=== PATIENT | female | born 1940 | race Caucasian/White ===

== ENCOUNTER 2016-07-06 11:00 | Outpatient (CLI) | payer MEDICARE, OTHER | END 2016-07-06 11:01 | disposition home or self-care (01) | DX: M19.071 Primary osteoarthritis, right ankle and foot (principal); M71.371 Other bursal cyst, right ankle and foot ==

== ENCOUNTER 2016-08-29 10:23 | Emergency (ER) | payer MEDICARE, OTHER ==
[2016-08-29 10:45] LABS: BILIRUBIN,URINE NEGATIVE (NEGATIVE); PH,URINE 5.5 PH (5.0-7.5)
[2016-08-29 10:59] LABS: UR CULTURE IF IND INDICATED
[2016-08-29] MEDS ORDERED: SODIUM CHLORIDE 0.9% 1,000 ML IV ONE (11:21)
--- NOTE | 2016-08-29 11:21 | XRAY Report ---
EXAM: ABDOMEN RADIOGRAPHY, ONE VIEW EXAM DATE: 08/29/2016 11:00 AM. CLINICAL HISTORY: Constipation for approximately 5 days in a 76-year-old female. COMPARISON: None. TECHNIQUE: AP spine view. FINDINGS: Bowel Gas Pattern: Within normal limits. No dilated loops. No excess colonic fecal content. Other: No organomegaly, mass or abnormal calcifications. Osseous structures unremarkable for age. IMPRESSION: Normal abdominal bowel gas pattern. No excess colonic fecal content suggesting constipati on. [facility] Referring Provider Line: [phone] SITE ID: [id number]
[2016-08-29 11:39] LABS: BASOPHILS % (AUTO) 0.4 %; EOSINOPHILS % (AUTO) 0.3 %; HCT - HEMATOCRIT 46.5 % (37.0-47.0); HGB - HEMOGLOBIN 16.1 g/dL (12.0-16.0); LYMPHOCYTES % (AUTO) 12.3 %; MEAN CORPUSCULAR HEMOGLOBIN 33.6 pg (27.0-31.0); MEAN CORPUSCULAR HGB CONC 34.6 g/dL (32.0-36.0); MEAN CORPUSCULAR VOLUME 97.1 fL (81.0-99.0); MEAN PLATELET VOLUME 8.2 fL (7.9-10.8); MONOCYTES # (AUTO) 0.6 10^3/uL (0.0-1.0); MONOCYTES % (AUTO) 6.6 %; NEUTROPHILS # (AUTO) 6.7 10^3/uL (1.5-6.6); NEUTROPHILS % (AUTO) 80.4 %; RED BLOOD COUNT 4.79 10^6/uL (4.20-5.40); RED CELL DISTRIBUTION WIDTH 12.9 % (12.0-15.0); UNCORRECTED WHITE BLOOD COUNT 8.4 x10^3/uL; WHITE BLOOD COUNT 8.4 x10^3/uL (4.8-10.8)
[2016-08-29 11:51] LABS: ALBUMIN/GLOBULIN RATIO 1.7 (1.0-2.2); CALCIUM 9.7 mg/dL (8.5-10.3); CREATININE 0.8 mg/dL (0.4-1.0); POTASSIUM 3.9 mmol/L (3.5-5.0); TOTAL PROTEIN 7.6 g/dL (6.7-8.2)
[2016-08-29] MEDS ORDERED: IOPAMIDOL-300 100 ML VIAL IVP ONE (12:16)
[2016-08-29 12:52] VITALS: BP 171/89
--- NOTE | 2016-08-29 13:02 | CT Preliminary Report ---
Exam: CT Abdomen/Pelvis W/ IMPRESSION: Possible mass in the distal transverse colon. Correlation with colonoscopy is recommended . [facility] SITE ID: [id number]
--- NOTE | 2016-08-29 13:05 | CT Report ---
EXAM: CT ABDOMEN AND PELVIS EXAM DATE: 08/29/2016 12:33 PM. CLINICAL HISTORY: Constipation bloating and decreased caliber stools. COMPARISONS: None. TECHNIQUE: Routine helical CT imaging was performed through the abdomen and pelvis. IV contrast: 100 mL Isovue 300. Enteric contrast: No. Reconstructions: Coronal and sagittal. In accordance with CT protocol optimization, one or more of the following dose reduction techniques w ere utilized for this exam: automated exposure control, adjustment of mA and/or KV based on patient s ize, or use of iterative reconstructive technique. FINDINGS: Lung Bases: Unremarkable. Liver: Normal. No masses. Gallbladder/Bile Ducts: Unremarkable. Spleen: Normal. Pancreas: Normal. Adrenal Glands: Normal. Kidneys: Normal. No masses or hydronephrosis. Peritoneal Cavity/Bowel: There is a possible mass in the distal transverse colon (axial image 32-36, coronal reconstructions 18-20) The appendix is well visualized and normal. Pelvic Organs: Normal. The bladder and visualized pelvic organs are within normal limits. Vasculature: No aneurysms or other significant abnormality. Bones: No significant abnormality. Other: None. IMPRESSION: Possible mass in the distal transverse colon. Correlation with colonoscopy is recommended . [facility] Referring Provider Line: [phone] SITE ID: [id number]
[2016-08-29] MEDS ORDERED: CIPROFLOXACIN 250 MG TABLET PO STA (14:29)
--- NOTE | 2016-08-29 14:32 | ED Physician Documentation ---
PD HPI ABD PAIN - Stated complaint Stated Complaint: CONSTIPATION - Chief complaint Chief Complaint: Abd Pain - History obtained from History obtained from: Patient - Additional information Additional information: Patient is a 76-year-old female with really no significant past medical history. She presents with a complaint of constipation, abdominal bloating, and small thin caliber stools for the past couple of months. She initially thought it would pass however it is started to slowly worsen. She comesIn today with a complaint of concern for recurrent constipation she is taking Dulcolax a couple times and has not had any significant stool output. She does mention that she is eating and drinking less and maybe has lost 5 pounds of weight. She reports having relatively normal colonoscopy several years ago. This patient is otherwise healthy. She does not have fever or chills there is no nausea or vomiting and she has no lower urinary symptoms. Review of systems: For pertinent positive and negative questions for the review of systems please see history of present illness. Otherwise all other systems have been reviewed and are negative. Dragon disclaimer: Parts of this medical record were created using voice recognition technology. Because of the inherent limitations of this system occasional same sounding word substitutions do occur and persist despite proofreading. Please read the document for context. PD PAST MEDICAL HISTORY - Past Medical History Past Medical History: Yes Other Past Medical History: arthritis, urinary incontinence - Past Surgical History Past Surgical History: Yes - Present Medications Home Medications: Ambulatory Orders Medication Instructions Recorded Confirmed Ciprofloxacin HCl [Cipro] 250 mg PO BID #6 tablet 08/29/16 Docusate Sodium 250Mg Capsule 250 mg PO DAILY #14 capsule 08/29/16 [Colace 250Mg Capsule] Oxybutynin [Ditropan] 5 mg PO PRN 08/29/16 traZODone [Desyrel] 50 mg PO DAILY 08/29/16 08/29/16 - Allergies Allergies/Adverse Reactions: Allergies Allergy/AdvReac Type Severity Reaction Status Date / Time iodine Allergy Unknown Verified 08/29/16 10:29 Penicillins Allergy Unknown Verified 08/29/16 10:29 Sulfa (Sulfonamide Allergy Unknown Verified 08/29/16 10:29 Antibiotics) tetracycline Allergy Unknown Verified 08/29/16 10:29 - Social History Does the pt smoke?: No Smoking Status: Never smoker Does the pt drink ETOH?: Yes ETOH Use: Wine Does the pt have substance abuse?: No PD ED PE NORMAL - General General: Alert and oriented X 3, No acute distress - HEENT HEENT: Atraumatic, PERRL, EOMI, Pharynx benign - Neck Neck: No JVD - Cardiac Cardiac: RRR, No murmur, No gallop, No rub - Respiratory Respiratory: No respiratory distress - Abdomen Abdomen: Normal bowel sounds, Soft, Non tender, Non distended, Other (Slightly increased borborygmi) - Derm Derm: Normal color, Warm and dry - Extremities Extremities: No deformity, No tenderness to palpate, No edema - Neuro Neuro: Alert and oriented X 3, air traffic coordinator 2-12 intact, No motor deficit, No sensory deficit - Psych Psych: Normal mood Results - Vitals Vitals: Vital Signs - 24 hr 08/29/16 08/29/16 10:26 12:51 Temperature 36.3 C L Heart Rate 75 64 Respiratory 16 16 Rate Blood Pressure 171/85 H 171/89 H O2 Saturation 99 98 Oxygen O2 Source Room air - Labs Labs: Laboratory Tests 08/29/16 08/29/16 08/29/16 10:36 11:30 11:30 WBC 8.4 RBC 4.79 Hgb 16.1 H Hct 46.5 MCV 97.1 MCH 33.6 H MCHC 34.6 RDW 12.9 Plt Count 226 MPV 8.2 Neut # 6.7 H Lymph # 1.0 L [place] # 0.6 Eos # 0.0 Baso # 0.0 Absolute Nucleated RBC 0.00 Nucleated RBCs 0.0 Sodium 137 Potassium 3.9 Chloride 102 Carbon Dioxide 23 Anion Gap 12.0 BUN 11 Creatinine 0.8 Estimated GFR (MDRD) 70 L Glucose 107 H Calcium 9.7 Total Bilirubin 1.0 AST 25 ALT 19 Alkaline Phosphatase 66 Total Protein 7.6 Albumin 4.8 Globulin 2.8 Albumin/Globulin Ratio 1.7 Lipase 41 Urine Color YELLOW Urine Clarity CLEAR Urine pH 5.5 Ur Specific [place] 1.020 Urine Protein NEGATIVE Urine Glucose (UA) NEGATIVE Urine Ketones 15 H Urine Occult Blood NEGATIVE Urine Nitrite NEGATIVE Urine Bilirubin NEGATIVE Urine Urobilinogen 0.2 (NORMAL) Ur Leukocyte Esterase TRACE H Urine RBC 0-5 Urine WBC 6-10 H Ur Squamous Epith Cells FEW Squamous Urine Bacteria Rare Urine Culture Comments INDICATED PD MEDICAL DECISION MAKING - ED course ED course: Well-appearing 76-year-old lady who presents with abdominal bloating, constipation, mild decreased appetite and small caliber stools. This is ongoing is been present for a couple months. On exam she looks great. She had a has increased borborygmi otherwise is soft nontender examination. We did do a CT scan of the abdomen pelvis with IV contrast there is a questionable abnormality in the transverse colon possibly consistent with a mass. Given the patient's complaints of small caliber stools and this radiographic finding she probably needs a urgent colonoscopy. The case was discussed with general surgery irrigation service technician who wants her to follow-up on Tuesday with him. The patient is clinically doing well. She perhaps has a mild urinary tract infection which will be treated with ciprofloxacin low-dose and we will put her on stool softeners and the patient will increase her fiber and follow-up tomorrow. Disposition: To home Clinical impression: 1. Abdominal pain constipation and bloating 2. Possible transverse colon mass 3. Urinary tract infection-minor Departure - Departure Disposition: , Self Care Clinical Impression: Colonic mass Condition: Good Instructions: Abdominal Pain Follow-Up: MISAEL HIRSCH MD [Provider Admit Priv/Credential] - Prescriptions: Ciprofloxacin HCl [Cipro] 250 mg PO BID #6 tablet Docusate Sodium 250Mg Capsule [Colace 250Mg Capsule] 250 mg PO DAILY #14 capsule Comments: Call DR LYNNE TOMORROW FOR APPOINTMENT
[2016-08-29] MEDS ORDERED: CIPROFLOXACIN 250 MG TABLET PO ONE (14:36)
== END 2016-08-29 14:52 | disposition home or self-care (01) ==
LOC: ED 10:23
DX: K59.00 Constipation, unspecified (principal); R14.0 Abdominal distension (gaseous); K63.89 Other specified diseases of intestine; N39.0 Urinary tract infection, site not specified
CPT/HCPCS: 36415; 74000; 74177; 80053; 81001; 83690; 85025; 87086; 99283; 99284; A9270; Q9967

== ENCOUNTER 2016-09-02 12:18 | Day surgery (SDC) | payer MEDICARE, OTHER ==
[2016-09-02] MEDS ORDERED: LACTATED RINGERS 1,000 ML IV ONE ×3 (12:49→14:50)
[2016-09-02] MEDS ORDERED: MIDAZOLAM 2 MG/2 ML VIAL IVP ONE (14:00)
[2016-09-02] MEDS ORDERED: fentaNYL 100 MCG/2 ML VIAL IVP ONE (14:00)
[2016-09-02 15:21] VITALS: BP 174/79
== END 2016-09-02 12:19 | disposition home or self-care (01) ==
LOC: SDS 12:18
PROVIDERS: ATTEND Surgery
PROC: 0DBP8ZX Excision of Rectum, Via Natural or Artificial Opening Endoscopic, Diagnostic (ICD-10-PCS; 2016-09-02)
PROC: 0DBN8ZX Excision of Sigmoid Colon, Via Natural or Artificial Opening Endoscopic, Diagnostic (ICD-10-PCS; principal; 2016-09-02 13:30)
DX: K63.89 Other specified diseases of intestine (principal); K63.5 Polyp of colon; K57.30 Diverticulosis of large intestine without perforation or abscess without bleeding; D12.8 Benign neoplasm of rectum; K64.8 Other hemorrhoids; I10 Essential (primary) hypertension; K21.9 Gastro-esophageal reflux disease without esophagitis; F41.9 Anxiety disorder, unspecified; F32.9 Major depressive disorder, single episode, unspecified; Z96.651 Presence of right artificial knee joint; Z88.0 Allergy status to penicillin; Z88.2 Allergy status to sulfonamides
CPT/HCPCS: 45380; 45385; J7120; 88305

== ENCOUNTER 2016-09-29 16:04 | Outpatient (CLI) | payer MEDICARE, OTHER ==
--- NOTE | 2016-10-01 15:38 | Mammography Report ---
DIGITAL SCREENING MAMMOGRAM: 09/29/2016 CLINICAL INDICATION: A 76-year-old with history of benign biopsies for screening. COMPARISON: 09/2015, 06/2013, 03/2012, 03/2010. TECHNIQUE: Routine CC and MLO projections were obtained of the breasts as well as bilateral laterall y exaggerated craniocaudal views. FINDINGS: Scattered fibroglandular tissue is present within the breasts. There are no dominant justin s, suspicious microcalcifications, or secondary signs of malignancy. In comparison to the previous st udies, there are no significant changes. ASSESSMENT: NO MAMMOGRAPHIC EVIDENCE OF MALIGNANCY. NO SIGNIFICANT INTERVAL CHANGES. RECOMMENDATION: Screening mammography is recommended annually. BI-RADS category 1 - negative. STANDARD QUALIFYING STATEMENTS 1. This examination was reviewed with the aid of Computed-Aided Detection (CAD). 2. A negative or benign imaging report should not delay biopsy if clinically suspicious findings are present. Consider surgical consultation if warranted. More than 5% of cancers are not identified by i maging. 3. Dense breasts may obscure an underlying neoplasm. JOB #: [id number] EXT JOB #:[id number]
== END 2016-09-29 16:05 | disposition home or self-care (01) ==
LOC: DI.S 16:04
PROVIDERS: ATTEND Family Medicine
DX: Z12.31 Encounter for screening mammogram for malignant neoplasm of breast (principal)
CPT/HCPCS: 77067

== ENCOUNTER 2016-11-08 16:13 | Outpatient (CLI) | payer MEDICARE, OTHER ==
--- NOTE | 2016-11-09 10:51 | MRI Report ---
EXAM: LEFT ANKLE/HINDFOOT MRI WITHOUT CONTRAST EXAM DATE: 11/08/2016 05:03 PM. CLINICAL HISTORY: Acquired flatfoot. Left ankle pain. COMPARISON: None. TECHNIQUE: Multiplanar, multisequence T1-weighted and fluid-sensitive sequences of the ankle/hindfoot without contrast. Other: None. FINDINGS: Bones and Articular Cartilage: Linear defect from previously placed anchor within the lateral malleol us. Small osteophytes at the anterior aspect of the tibial plafond. Slight bony irregularity at the m edial malleolus which may be from previous injury. Small 8 x 4 x 6 mm well-corticated bone fragment a djacent to the posterior lateral aspect of the medial malleolus. Osteophytes at the inferomedial aspe ct of the talus. Small 4 x 3 mm area of minimal subcortical marrow edema and moderate cartilage thinn ing at the lateral aspect of the talar dome. There is also focal grade 3-4 chondromalacia of the ante rolateral aspect of the tibiotalar joint. [id number] osteoarthritis at the posterior aspect of the posterior subtalar joint. [id number] osteoarthritis at the navicularmedial cuneiform joint . Moderate to severe osteoarthritis at the second and third tarsometatarsal joints. Moderate osteoart hritis at the fourth and fifth tarsometatarsal joints. No acute fracture. Ligaments: The tibiofibular ligaments are intact. The anterior talofibular ligament is not well seen. The posterior talofibular ligament is intact. The calcaneofibular ligament is intact. The anterior t ibiotalar ligaments are not well seen. The superficial deltoid and spring ligaments are intact. Anterior Tendons: The tibialis anterior, extensor hallucis longus, and extensor digitorum longus tend ons are unremarkable. Medial Tendons: There is tendinosis within the posterior tibialis tendon at the level of the distal t ibial metadiaphysis. There is also minimal posterior tibialis tenosynovitis at the level of the dista l tibial metadiaphysis. The more distal aspects of the posterior tibialis tendon are intact. The flex or digitorum longus and flexor hallucis longus tendons are unremarkable. Lateral Tendons: Postoperative changes suggestive of previous peroneal brevis reconstruction. The dis hernando aspect of the reconstructed peroneal brevis tendon is intact. The peroneal longus tendon is intac t. Achilles Tendon: The Achilles tendon is unremarkable. Musculature: No edema or fatty atrophy. Other: No effusions. The contents of the sinus tarsi and tarsal tunnel are unremarkable. No plantar f asciitis. Mild subcutaneous edema at the medial aspect of the ankle. IMPRESSION: 1. Tendinosis and minimal tenosynovitis of the posterior tibialis tendon at the level of the distal t ibial metadiaphysis. 2. Mild subcutaneous edema at the medial aspect of the ankle. 3. Postoperative changes at the lateral aspect of the ankle suggestive of previous peroneal brevis re construction. The reconstructed peroneal brevis tendon is intact. 4. Osteoarthritis at the hindfoot and midfoot as described above. Small osteochondral lesion/injury a t the lateral aspect of the talar dome. 5. The anterior talofibular and the anterior tibiotalar ligaments are not well seen, and may be chron ically torn. [facility] MUSCULOSKELET[facility] SE[facility] Referring Provider Line: [phone] SITE ID: [id number]
== END 2016-11-08 16:14 | disposition home or self-care (01) ==
LOC: DI 16:13
PROVIDERS: ATTEND Podiatrist
DX: M25.572 Pain in left ankle and joints of left foot (principal); M21.42 Flat foot [pes planus] (acquired), left foot; M65.872 Other synovitis and tenosynovitis, left ankle and foot; M76.822 Posterior tibial tendinitis, left leg; M19.072 Primary osteoarthritis, left ankle and foot

== ENCOUNTER 2017-01-01 08:17 | Outpatient (CLI) | payer MEDICARE, OTHER ==
--- NOTE | 2017-01-01 09:47 | Ultrasound Report ---
EXAM: BILATERAL LOWER EXTREMITY VENOUS ULTRASOUND EXAM DATE: 01/01/2017 09:24 AM. CLINICAL HISTORY: BILATERAL LEG SPASM PAIN. COMPARISON: None. TECHNIQUE: Real-time sonographic vascular imaging was performed by the concrete inspector through the lower extremities utilizing both color-flow and Doppler spectral analysis. Multiple floor representative static i mages were saved for review. FINDINGS: Right: Common Femoral Vein (CFV): Normal. CFV-GSV Junction: Normal. Profunda Femoral Vein (PFV): Normal. Femoral Vein (FV) Prox: Normal. Femoral Vein (FV) Mid: Normal. Femoral Vein (FV) Dist: Normal. Popliteal Vein: Normal. Posterior Tibial Veins: Normal. Peroneal Veins: Normal. Left: Common Femoral Vein (CFV): Normal. CFV-GSV Junction: Normal. Profunda Femoral Vein (PFV): Normal. Femoral Vein (FV) Prox: Normal. Femoral Vein (FV) Mid: Normal. Femoral Vein (FV) Dist: Normal. Popliteal Vein: Normal. Posterior Tibial Veins: Normal. Peroneal Veins: Normal. Other: None. IMPRESSION: No evidence for deep venous thrombosis bilaterally. [facility] Referring Provider Line: [phone] SITE ID: [id number]
== END 2017-01-01 08:18 | disposition home or self-care (01) ==
LOC: DI 08:17
PROVIDERS: ATTEND Nurse Practitioner Family
DX: M79.605 Pain in left leg (principal); M79.604 Pain in right leg
CPT/HCPCS: 93970

== ENCOUNTER 2017-01-10 11:45 | Outpatient (CLI) | payer MEDICARE, OTHER ==
--- NOTE | 2017-01-10 15:44 | XRAY Report ---
THREE VIEW LEFT ANKLE: 01/10/2017 CLINICAL INDICATION: Severe pain. FINDINGS: AP, lateral, and oblique views of the left ankle demonstrate lateral greater than medial s oft tissue swelling. Mild osteoarthritic changes are seen. There is no evidence of acute fracture. No effusion is present. IMPRESSION: MILD OSTEOARTHRITIS. SOFT TISSUE SWELLING. :9 JOB #: [id number] EXT JOB #:[id number]
== END 2017-01-10 11:46 | disposition home or self-care (01) ==
LOC: DI.S 11:45
PROVIDERS: ATTEND Family Medicine
DX: M19.072 Primary osteoarthritis, left ankle and foot (principal)

== ENCOUNTER 2017-03-23 20:38 | Outpatient (CLI) | payer MEDICARE, OTHER ==
--- NOTE | 2017-03-24 01:34 | Ultrasound Report ---
EXAM: BILATERAL LOWER EXTREMITY VENOUS ULTRASOUND EXAM DATE: 03/23/2017 10:35 PM. CLINICAL HISTORY: DIMINISHED PULSE BELATE, FOOT SUGARY, EDEMA. COMPARISON: None. TECHNIQUE: Real-time sonographic vascular imaging was performed by the sewage screen operator through the lower extremities utilizing both color-flow and Doppler spectral analysis. Multiple admitting representative static i mages were saved for review. FINDINGS: Right: Common Femoral Vein (CFV): Normal. CFV-GSV Junction: Normal. Profunda Femoral Vein (PFV): Normal. Femoral Vein (FV) Prox: Normal. Femoral Vein (FV) Mid: Normal. Femoral Vein (FV) Dist: Normal. Popliteal Vein: Normal. Posterior Tibial Veins: Normal. Peroneal Veins: Normal. Left: Common Femoral Vein (CFV): Normal. CFV-GSV Junction: Normal. Profunda Femoral Vein (PFV): Normal. Femoral Vein (FV) Prox: Normal. Femoral Vein (FV) Mid: Normal. Femoral Vein (FV) Dist: Normal. Popliteal Vein: Normal. Posterior Tibial Veins: Normal. Peroneal Veins: Normal. Other: None. IMPRESSION: No evidence for deep venous thrombosis bilaterally. [facility] Referring Provider Line: [phone] SITE ID: [id number]
--- NOTE | 2017-03-24 13:15 | Ultrasound Report ---
EXAM: BILATERAL LOWER EXTREMITY ARTERIAL DOPPLER ULTRASOUND EXAM DATE: 03/23/2017 10:34 PM. CLINICAL HISTORY: Diminished pulse, foot surgery, edema. Clinical suspicion for stenosis is cause for diminished pulse and foot edema. COMPARISON: None. TECHNIQUE: Real-time sonographic vascular imaging was performed by the recycling tech, utilizing color-f low, Doppler flow, and spectral analysis. Multiple truck sales representative static images were saved for review . FINDINGS: RIGHT LEG: REPAIR TABLE OPERATOR: PSV 83 cm/sec. Triphasic waveform. PSFA: PSV 77 cm/sec. Biphasic waveform. MSFA: PSV 64 cm/sec. Biphasic waveform. DSFA: PSV 38 cm/sec. Biphasic waveform. PFA: PSV 69 cm/sec. Triphasic waveform. POP: PSV 62 cm/sec. Biphasic waveform. BROCK: PSV 29 cm/sec. Monophasic waveform. KENO ATTENDANT: PSV 51 cm/sec. Biphasic waveform. PER: PSV 27 cm/sec. Biphasic waveform. DPA: PSV 37 cm/sec. Biphasic waveform. LEFT LEG: REPAIR TABLE OPERATOR: PSV 107 cm/sec. Triphasic waveform. PSFA: PSV 83 cm/sec. Triphasic Waveform. MSFA: PSV 86 cm/sec. Biphasic waveform. DSFA: PSV 80 cm/sec. Triphasic waveform. PFA: PSV 46 cm/sec. Biphasic waveform. POP: PSV 82 cm/sec. Biphasic waveform. BROCK: PSV 71 cm/sec. Biphasic waveform. KENO ATTENDANT: PSV 126 cm/sec. Biphasic waveform. PER: PSV 60 cm/sec. Monophasic waveform. DPA: PSV 47 cm/sec. Monophasic waveform. Peak systolic velocity of proximal right anterior tibial artery is 29 cm/s with monophasic waveform c ompared to the 62 cm/s peak systolic velocity of right popliteal artery with biphasic waveform. Monop hasic waveform is noted at the left dorsalis pedis artery with 47 cm/s peak systolic velocity. IMPRESSION: 1. Monophasic flow left dorsalis pedis artery suggestive of distal anterior tibial artery stenosis, c ellulitis or postoperative edema. 2. Limited visualization of the right anterior tibial artery. 2.Diffuse mild atheromatous changes lower extremity arteries. 3. Recommend resting ankle-brachial indices bilaterally for evaluation of arterial insufficiency. [facility] Referring Provider Line: [phone] SITE ID: [id number]
== END 2017-03-23 20:39 | disposition home or self-care (01) ==
LOC: DI 20:38
PROVIDERS: ATTEND Nurse Practitioner Family
DX: R09.89 Other specified symptoms and signs involving the circulatory and respiratory systems (principal); R60.9 Edema, unspecified; I70.203 Unspecified atherosclerosis of native arteries of extremities, bilateral legs
CPT/HCPCS: 93925; 93970

== ENCOUNTER 2017-03-30 14:03 | Emergency (ER) | payer MEDICARE, OTHER ==
--- NOTE | 2017-03-30 14:29 | ED Physician Documentation ---
PD HPI LOWER EXT INJURY - Stated complaint Stated Complaint: LEFT FOOT PX - Chief complaint Chief Complaint: Ext Problem - History obtained from History obtained from: Patient - History of Present Illness PD HPI LOW EXT INJURY LOCATION: Other (She had a complicated surgery at the [facility] on February [address] Devon Houston. Basically it sounds like she had a lot of foot and ankle pain and she has a lot of new hardware in there. She is doing very well until about a week or 10 days ago when she started to get swelling of the foot. She Had a culture done because there was some pus coming from 1 of the suture lines between the first and second metatarsals and was placed on clindamycin. She also had Doppler ultrasounds of the arterial and venous systems showing no DVT and some vascular disease that is nonocclusive. Despite being on clindamycin, now day about 5 she continues to have the symptoms. She is very mild nausea from the clindamycin but is otherwise without fever or chills.) Review of Systems Constitutional: denies: Fever, Chills Throat: denies: Dental pain / toothache, Sore throat Cardiac: denies: Chest pain / pressure, Palpitations Respiratory: denies: Dyspnea, Cough PD PAST MEDICAL HISTORY - Past Medical History Respiratory: None Endocrine/Autoimmune: None GI: GERD, Chronic constipation, Hemorrhoids : Other HEENT: Chronic hearing loss Psych: Anxiety Musculoskeletal: Osteoarthritis Derm: Eczema - Past Surgical History Past Surgical History: Yes General: EGD Ortho: Knee replacement, Rotator cuff repair, Spine surgery, Other Cardiovascular: Cardiac catheterization - Present Medications Home Medications: Ambulatory Orders Medication Instructions Recorded Confirmed Oxybutynin [Ditropan] 5 mg PO PRN PRN 08/29/16 09/01/16 traZODone [Desyrel] 200 mg PO DAILY 08/29/16 09/01/16 Clindamycin HCl [Clindamycin 300MG 300 mg PO QID 03/30/17 03/30/17 CAP] DULoxetine [Cymbalta] 20 mg PO BID 03/30/17 03/30/17 Zolpidem [Ambien] 5 mg PO DAILY 03/30/17 03/30/17 - Allergies Allergies/Adverse Reactions: Allergies Allergy/AdvReac Type Severity Reaction Status Date / Time iodine Allergy Unknown Verified 03/30/17 14:11 Penicillins Allergy Unknown Verified 08/29/16 10:29 Sulfa (Sulfonamide Allergy Unknown Verified 08/29/16 10:29 Antibiotics) tetracycline Allergy Unknown Verified 08/29/16 10:29 - Social History Does the pt smoke?: No Smoking Status: Never smoker Does the pt drink ETOH?: Yes Does the pt have substance abuse?: No PD ED PE NORMAL - Vitals Vital signs reviewed: Yes - General General: Alert and oriented X 3, No acute distress - HEENT HEENT: PERRL, EOMI - Neck Neck: Supple, no meningeal sign, No bony TTP - Cardiac Cardiac: RRR, No murmur - Respiratory Respiratory: No respiratory distress, Clear bilaterally - Abdomen Abdomen: Normal bowel sounds, Soft, Non tender - Back Back: No CVA TTP, No spinal TTP - Derm Derm: Normal color, Warm and dry - Extremities Extremities: Other (Left foot is warm and red throughout with mild swelling. It is nontender, there is no warmth or redness above the top part of the ankle. Calf is nontender. Suture lines are intact without purulent drainage.) - Neuro Neuro: Alert and oriented X 3, Normal speech - Psych Psych: Normal mood, Normal affect Results - Vitals Vitals: Vital Signs - 24 hr 03/30/17 14:06 Temperature 36 C L Heart Rate 108 H Respiratory 18 Rate Blood Pressure 142/90 H O2 Saturation 97 Oxygen O2 Source Room air - Labs Labs: Laboratory Tests 03/30/17 03/30/17 03/30/17 14:36 14:36 14:36 WBC 6.9 RBC 4.30 Hgb 14.2 Hct 41.3 MCV 96.0 MCH 33.0 H MCHC 34.4 RDW 12.8 Plt Count 293 MPV 7.6 L Neut # 5.3 Lymph # 0.9 L [place] # 0.7 Eos # 0.0 Baso # 0.0 Absolute Nucleated RBC 0.00 Nucleated RBC % 0.0 ESR 10 Sodium 135 Potassium 4.1 Chloride 100 L Carbon Dioxide 21 Anion Gap 14.0 H BUN 13 Creatinine 0.7 Estimated GFR (MDRD) 82 L Glucose 127 H Calcium 9.5 C-Reactive Protein < 1.0 PD MEDICAL DECISION MAKING - ED course Complexity details: reviewed old records (Previous labs obtained from [facility] dated March 24 as the collection date, she had a white count of 7.5 and her bacterial culture grew light mixed skin steven) ED course: 77-year-old woman with postoperative foot swelling, infectious markers are negative and x-ray without acute change, ultrasounds already done and reviewed in the chart, could be mild infection and she is encouraged to continue her clindamycin but also follow-up with a vascular surgeon. Departure - Departure Disposition: 01 Home, Self Care Clinical Impression: Swelling of first metatarsophalangeal (MTP) joint of left foot Condition: Good Record reviewed to determine appropriate education?: Yes Comments: Follow-up with your surgeon as scheduled and also follow-up with the vascular surgeon as the referral has been started. Return if worse or you run a fever.
[2017-03-30 14:46] LABS: BASOPHILS % (AUTO) 0.4 %; EOSINOPHILS % (AUTO) 0.2 %; HGB - HEMOGLOBIN 14.2 g/dL (12.0-16.0); LYMPHOCYTES # (AUTO) 0.9 10^3/uL (1.5-3.5); MEAN CORPUSCULAR HGB CONC 34.4 g/dL (32.0-36.0); MEAN PLATELET VOLUME 7.6 fL (7.9-10.8); MONOCYTES # (AUTO) 0.7 10^3/uL (0.0-1.0); MONOCYTES % (AUTO) 9.6 %; NEUTROPHILS # (AUTO) 5.3 10^3/uL (1.5-6.6); NEUTROPHILS % (AUTO) 76.8 %; PLT - PLATELET COUNT 293 10^3/uL (130-450); RED CELL DISTRIBUTION WIDTH 12.8 % (12.0-15.0); WHITE BLOOD COUNT 6.9 x10^3/uL (4.8-10.8)
--- NOTE | 2017-03-30 15:03 | XRAY Preliminary Report ---
Exam: XR FOOT 3 VIEW LT IMPRESSION: 1. Marked osteopenia. 2. No hyper acute bony abnormality. 3. Fragmentation of the second PIP hardware. [facility] SITE ID: [id number]
[2017-03-30 15:04] LABS: BUN - BLOOD UREA NITROGEN 13 mg/dL (6-20); CALCIUM 9.5 mg/dL (8.5-10.3); CARBON DIOXIDE - CO2 21 mmol/L (21-32); CHLORIDE 100 mmol/L (101-111); CREATININE 0.7 mg/dL (0.4-1.0); GFR - MDRD 82 (>89); GLUCOSE 127 mg/dL (70-100); SODIUM 135 mmol/L (135-145)
[2017-03-30 15:15] LABS: CRP - C-REACTIVE PROTEIN < 1.0 mg/dL (0-1.0)
--- NOTE | 2017-03-30 15:22 | XRAY Report ---
EXAM: LEFT FOOT RADIOGRAPHY EXAM DATE: 03/30/2017 02:30 PM. CLINICAL HISTORY: Pain and swelling. Surgery 2 months ago. COMPARISON: None. TECHNIQUE: 3 views. FINDINGS: Bones: Marked diffuse osteopenia. Fracture central aspect of the intramedullary félix for purposes of arthrodesis at the second PIP joint . Dorsal plate and transverse screws first tarsometatarsal and second tarsometatarsal joints intact wit hout migration. No solid fusion at either of these joints. Partial resection anterior most aspect of the calcaneus with large caliber arthrodesis disk. The surg ical hardware is intact without migration. No periosteal reaction, unexpected bony abnormality, nor destructive bone loss. Joints: Moderate bunion deformity and moderate arthropathy first MTP joint, suspect gout. Soft Tissues: Mild diffuse mid and forefoot edema. No unexpected radiopaque foreign body. IMPRESSION: 1. Marked osteopenia. 2. No hyperacute bony abnormality. 3. Fragmentation of the second PIP hardware. [facility] Referring Provider Line: [phone] SITE ID: [id number]
[2017-03-30 15:48] VITALS: BP 142/91
== END 2017-03-30 16:13 | disposition home or self-care (01) ==
LOC: ED 14:03
DX: M25.475 Effusion, left foot (principal); Z96.659 Presence of unspecified artificial knee joint
CPT/HCPCS: 36415; 80048; 85025; 85651; 86140; 99283

== ENCOUNTER 2017-10-11 11:11 | Outpatient (CLI) | payer MEDICARE, OTHER ==
--- NOTE | 2017-10-12 08:59 | Mammography Report ---
Procedure Date: 10/11/2017 Accession Number: [id number] / [id number] Procedure: MGN - Screening Mammo Dig Bilat CPT Code: FULL RESULT: EXAM: Screening Mammo Dig Bilat DATE: 10/11/2017 11:41 AM CLINICAL HISTORY: Routine screening, history of benign biopsies TECHNIQUE: Bilateral CC and MLO views were obtained. COMPARISON: 09/29/2016, 09/24/2015, 06/26/2013, to 713, and 04/10/2010 FINDINGS: There are scattered fibroglandular densities. There has been no significant interval change. No suspicious masses, clustered microcalcifications, or regions of architectural distortion are identified. IMPRESSION: Negative examination RECOMMENDATION: Routine annual screening unless otherwise clinically indicated. BIRADS CATEGORY 1: Negative STANDARD QUALIFYING STATEMENTS: 1. This examination was reviewed with the aid of Computer-Aided Detection (CAD). 2. A negative or benign imaging report should not delay biopsy if clinically suspicious findings are present. Consider surgical consultation if warrented. More than 5% of cancers are not identified by imaging. 3. Dense breasts may obscure an underlying neoplasm.
== END 2017-10-11 11:12 | disposition home or self-care (01) ==
LOC: DI.N 11:11
PROVIDERS: ATTEND Family Medicine
DX: Z12.31 Encounter for screening mammogram for malignant neoplasm of breast (principal)
CPT/HCPCS: 77067

== ENCOUNTER 2018-11-21 13:14 | Outpatient (CLI) | payer MEDICARE, OTHER ==
--- NOTE | 2018-11-22 09:20 | Mammography Report ---
Reason: SCREENING MAMMO, SELF REFERRING Procedure Date: 11/21/2018 Accession Number: [id number] / [id number] Procedure: MGS - Screening Mammo Dig Bilat CPT Code: FULL RESULT: EXAM: Screening Mammo Dig Bilat DATE: 11/21/2018 1:40 PM CLINICAL HISTORY: Screening TECHNIQUE: (B) - Bilateral CC and MLO views were obtained. COMPARISON: 10/11/2017, 09/29/2016, 09/24/2015 PARENCHYMAL PATTERN: (A) - The breasts demonstrate scattered fibroglandular densities bilaterally. FINDINGS: There are no suspicious masses, calcifications, or areas of distortion. IMPRESSION: Negative examination. BI-RADS category 1. RECOMMENDATION: (ANNUAL) - Recommend routine annual screening mammography. BI-RADS CATEGORY: (1) - Negative. STANDARD QUALIFYING STATEMENTS: 1. This examination was not reviewed with the aid of Computer-Aided Detection (CAD). 2. A negative or benign imaging report should not preclude biopsy if clinically suspicious findings are present. 3. Dense breasts may obscure an underlying neoplasm. 4. This examination was reviewed without the aid of 3D breast imaging (tomosynthesis).
== END 2018-11-21 13:15 | disposition home or self-care (01) ==
LOC: DI.S 13:14
DX: Z12.31 Encounter for screening mammogram for malignant neoplasm of breast (principal)
CPT/HCPCS: 77067

== ENCOUNTER 2019-03-24 09:51 | Outpatient (CLI) | payer MEDICARE, OTHER ==
--- NOTE | 2019-03-24 23:32 | Ultrasound Report ---
Reason: ABDOMINAL DISCOMFORT Procedure Date: 03/24/2019 Accession Number: [id number] / [id number] Procedure: US - Abdomen Complete CPT Code: Final Report FULL RESULT: EXAM: ABDOMEN ULTRASOUND EXAM DATE: 03/24/2019 11:21 AM. CLINICAL HISTORY: ABDOMINAL DISCOMFORT. COMPARISON: None. TECHNIQUE: Real-time scanning was performed with static images obtained. FINDINGS: Liver: Echogenic mildly heterogeneous echotexture. 15.3 cm. Main portal vein flow: Hepatopetal. Gallbladder: 1 cm gallstone. No abnormal wall thickening or sonographic Mendieta sign. Biliary System: Common bile duct measures 2 mm. No intrahepatic ductal dilatation. Pancreas: The visualized portions are unremarkable. Kidneys: Right: 9.9 cm longitudinally. No contour-deforming mass, shadowing stones, or hydronephrosis. Left: 11.2 cm longitudinally. No contour-deforming mass, shadowing stones, or hydronephrosis. Spleen: 9.5 cm. Likely benign 1 cm cystic structure at the inferior pole. Imaged portions of the aorta and IVC are unremarkable. IMPRESSION: Cholelithiasis. Hepatic steatosis. RADIA
--- NOTE | 2019-03-24 23:53 | Ultrasound Report ---
Reason: ABDOMINAL DISCOMFORT Procedure Date: 03/24/2019 Accession Number: [id number] / [id number] Procedure: US - Pelvic w/Transvaginal CPT Code: Final Report FULL RESULT: EXAM: PELVIC ULTRASOUND EXAM DATE: 03/24/2019 11:11 AM. CLINICAL HISTORY: ABDOMINAL DISCOMFORT. COMPARISON: PELVIC W/TRANSVAGINAL 10/08/2015 3:36 PM. TECHNIQUE: Realtime transabdominal pelvic scan performed to identify the uterus and adnexa and as an overview of other pelvic structures, followed by transvaginal scan to provide greater detail of the uterus and adnexa, with static image documentation. FINDINGS: Uterus: 5 x 2.5 x 3.3 cm, volume 1 1.1 cc. Anteverted position. Normal overall size and echotexture. Masses: None. Endometrium: 2 mm. Small nonspecific cystic lesion in the endometrium measuring 4 x 2 x 4 mm. Cervix: Both he and cysts. Right Ovary: 0.8 x 1.2 x 1 cm, volume 0.5 cc. Normal echotexture and blood flow. Left Ovary: 1.5 x 0.6 x 0.9 cm, volume 0.5 cc. Normal echotexture and blood flow. Free Fluid: None. Other: None. IMPRESSION: 1. No acute findings sonographically. 2. Nonspecific tiny endometrial cystic lesion measuring up to 4 mm in diameter. RADIA
== END 2019-03-24 09:52 | disposition home or self-care (01) ==
LOC: DI 09:51
PROVIDERS: ATTEND Nurse Practitioner Family
DX: K80.20 Calculus of gallbladder without cholecystitis without obstruction (principal); K76.0 Fatty (change of) liver, not elsewhere classified; N85.8 Other specified noninflammatory disorders of uterus
CPT/HCPCS: 76700; 76830; 76856

== ENCOUNTER 2020-04-11 10:13 | Outpatient (CLI) | payer MEDICARE, OTHER ==
--- NOTE | 2020-04-14 11:45 | Ultrasound Report ---
LIMITED ULTRASOUND OF LEFT BREAST AND AXILLA: 04/11/2020 CLINICAL: Occasional left axilla pain. Focal left breast pain. Comparison is made to exams dated: 04/11/2020 mammogram, 11/21/2018 mammogram, 10/11/2017 mammogram, 09/29/2016 mammogram, 09/24/2015 mammogram, and 06/26/2013 mammogram - [facility]. Ultrasound of the left breast 3 o'clock, and axilla regions was performed. No abnormality which cor responds with the area of pain is seen. IMPRESSION: NEGATIVE There is no abnormality seen in the left breast to correspond with the area of clinical concern and p ain at 3 o'clock, however, clinical correlation and clinical followup are recommended. This exam was interpreted at Station ID: [id number]. Electronically Signed By: Lam Bañuelos acr/:04/11/2020 14:38:40 Ultrasound BI-RADS: 1 Negative BI-RADS CATEGORY: (1) - 1 Unspecified - other [id number] return to screening LATERALITY: (B)
--- NOTE | 2020-04-14 11:45 | Mammography Report ---
BILATERAL DIGITAL DIAGNOSTIC MAMMOGRAM 3D/2D: 04/11/2020 CLINICAL: Routine screening. Mastodynia. Comparison is made to exams dated: 11/21/2018 mammogram, 10/11/2017 mammogram, 09/29/2016 mammogram, 09/23 mammogram, 06/26/2013 mammogram - [facility], and 03/30/2012 mammogram - [facility]. The tissue of both breasts is predominantly fatty. The left breast has post-operative findings. No significant masses, calcifications, or other findings are seen in either breast. IMPRESSION: INCOMPLETE: NEEDS ADDITIONAL IMAGING EVALUATION There is no abnormality seen in the left breast to correspond with the area of clinical concern and p ain in the outer aspect. An ultrasound is recommended for further evaluation and is scheduled to immediately follow this exami nation. This exam was interpreted at Station ID: [id number]. NOTE: For mammograms, a report in lay terms will be sent to the patient. Approximately 15% of breast malignancies will not be visualized mammographically. In the management of a palpable breast mass, a negative mammogram must not discourage biopsy of a clinically suspicious lesion. Electronically Signed By: Madan Sawant M.D. aty/:04/11/2020 12:12:48 ACR BI-RADS Category 0: Incomplete 3340F PARENCHYMAL PATTERN: (F) - The breast(s) demonstrate(s) diffuse fatty replacement. BI-RADS CATEGORY: (0) - 0 Ultrasound [id number] Immediate follow-up LATERALITY: (L)
== END 2020-04-11 10:14 | disposition home or self-care (01) ==
LOC: DI 10:13
PROVIDERS: ATTEND Physician Assistant
DX: N64.4 Mastodynia (principal)

== ENCOUNTER 2020-08-16 09:25 | Outpatient (CLI) | payer MEDICARE, OTHER ==
--- NOTE | 2020-08-16 18:21 | Ultrasound Report ---
PROCEDURE: Abdomen Limited INDICATIONS: DIASTASIS RECTI TECHNIQUE: Real-time focused scanning was performed of the abdomen, with image documentation. COMPARISON: CT abdomen and pelvis dated 08/29/2016 FINDINGS: Rectus diastasis is noted in the mid abdomen. The degree of diastases measures 3.8 cm. Thi s was not noted on the previous CT of the abdomen and pelvis. There is also a fat-containing periumbilical hernia. It is nonreducible. IMPRESSION: 1. Rectus diastases. 2. Nonreducible fat-containing umbilical hernia. Reviewed by: Dom England MD on 08/16/2020 5:19 PM NINA Approved by: Dom England MD on 08/16/2020 5:19 PM NINA Station ID: [id number]
== END 2020-08-16 09:26 | disposition home or self-care (01) ==
LOC: DI 09:25
PROVIDERS: ATTEND Nurse Practitioner Family
DX: M62.08 Separation of muscle (nontraumatic), other site (principal); K42.9 Umbilical hernia without obstruction or gangrene

== ENCOUNTER 2020-12-10 18:15 | Emergency (ER) | payer MEDICARE, OTHER ==
[2020-12-10 19:18] LABS: BASOPHILS % (AUTO) 0.3 %; EOSINOPHILS % (AUTO) 0.1 %; HCT - HEMATOCRIT 49.1 % (37.0-47.0); HGB - HEMOGLOBIN 16.2 g/dL (12.0-16.0); LYMPHOCYTES # (AUTO) 1.2 10^3/uL (1.5-3.5); LYMPHOCYTES % (AUTO) 12.6 %; MEAN CORPUSCULAR HEMOGLOBIN 33.1 pg (27.0-31.0); MEAN CORPUSCULAR VOLUME 100.2 fL (81.0-99.0); MEAN PLATELET VOLUME 9.4 fL (7.9-10.8); MONOCYTES # (AUTO) 0.7 10^3/uL (0.0-1.0); MONOCYTES % (AUTO) 6.9 %; NEUTROPHILS # (AUTO) 7.5 10^3/uL (1.5-6.6); NEUTROPHILS % (AUTO) 79.7 %; PLT - PLATELET COUNT 256 10^3/uL (130-450); RED CELL DISTRIBUTION WIDTH 12.7 % (12.0-15.0); WHITE BLOOD COUNT 9.4 x10^3/uL (4.8-10.8)
[2020-12-10 19:36] LABS: ALBUMIN 4.9 g/dL (3.2-5.5); ALBUMIN/GLOBULIN RATIO 1.5 (1.0-2.2); BILIRUBIN,TOTAL 0.7 mg/dL (0.2-1.0); CALCIUM 10.2 mg/dL (8.5-10.3); CREATININE 0.8 mg/dL (0.4-1.0); TOTAL PROTEIN 8.2 g/dL (6.7-8.2)
[2020-12-10 20:49] LABS: BILIRUBIN,URINE NEGATIVE (NEGATIVE); GLUCOSE, URINE (UA) NEGATIVE (NEGATIVE); KETONES,URINE (UA) 40 mg/dL (NEGATIVE); LEUKOCYTE ESTERASE, URINE NEGATIVE (NEGATIVE); NITRITE,URINE NEGATIVE (NEGATIVE); OCCULT BLOOD,URINE NEGATIVE (NEGATIVE); PROTEIN,URINE NEGATIVE (NEGATIVE); UROBILINOGEN,URINE 0.2 (NORMAL) E.U./dL (NORMAL)
[2020-12-10 20:52] LABS: CLARITY,URINE CLEAR (CLEAR)
[2020-12-10] MEDS ORDERED: MAGNESIUM CITRATE 296 ML BOTTLE PO STA (21:15)
[2020-12-10] MEDS ORDERED: BISACODYL 10 MG SUPP PR STA (21:16)
--- NOTE | 2020-12-10 21:21 | ED Physician Documentation ---
History of Present Illness - Stated complaint Stated Complaint: CONSTIPATION - Chief complaint Chief Complaint: Abd Pain - History obtained from History obtained from: Patient - Additonal information Additional information: Pt presents w/ 3 days of constipation. She states she has some llq abd pain and has not had a full BM in 3 days. She tried ducolax 2 tablets and a mineral oil enema w/o success. She has not had a fever, n/v, or urinary sx. She is tolerating po. She states she can't stay long because she is worried about her who is waiting in the car. Review of Systems Constitutional: reports: Reviewed and negative Eyes: reports: Reviewed and negative Ears: reports: Reviewed and negative Nose: reports: Reviewed and negative Throat: reports: Reviewed and negative Cardiac: reports: Reviewed and negative Respiratory: reports: Reviewed and negative GI: reports: Abdominal Pain, Constipation. denies: Abdominal Swelling, Nausea, Vomiting, Diarrhea, Hematemesis, Bloody / black stool : reports: Reviewed and negative Skin: reports: Reviewed and negative Musculoskeletal: reports: Reviewed and negative Neurologic: reports: Reviewed and negative Psychiatric: reports: Reviewed and negative Endocrine: reports: Reviewed and negative PD PAST MEDICAL HISTORY - Past Medical History Past Medical History: Yes Respiratory: None Endocrine/Autoimmune: None GI: GERD, Chronic constipation, Hemorrhoids : Other HEENT: Chronic hearing loss Psych: Anxiety Musculoskeletal: Osteoarthritis Derm: Eczema - Past Surgical History Past Surgical History: Yes General: EGD Ortho: Knee replacement, Rotator cuff repair, Spine surgery, Other Cardiovascular: Cardiac catheterization - Present Medications Home Medications: Ambulatory Orders Medication Instructions Recorded Confirmed Oxybutynin [Ditropan] 5 mg PO PRN PRN 08/29/16 09/01/16 traZODone [Desyrel] 200 mg PO DAILY 08/29/16 09/01/16 Clindamycin HCl [Clindamycin 300MG 300 mg PO QID 03/30/17 03/30/17 CAP] DULoxetine [Cymbalta] 20 mg PO BID 03/30/17 03/30/17 Zolpidem [Ambien] 5 mg PO DAILY 03/30/17 03/30/17 - Allergies Allergies/Adverse Reactions: Allergies Allergy/AdvReac Type Severity Reaction Status Date / Time iodine Allergy Unknown Verified 12/10/20 18:19 Penicillins Allergy Unknown Verified 12/10/20 18:19 Sulfa (Sulfonamide Allergy Unknown Verified 12/10/20 18:19 Antibiotics) tetracycline Allergy Unknown Verified 12/10/20 18:19 - Social History Does the pt smoke?: No Smoking Status: Never smoker Does the pt drink ETOH?: Yes Does the pt have substance abuse?: No PD ED PE NORMAL - Vitals Vital signs reviewed: Yes - General General: Alert and oriented X 3, No acute distress, Well developed/nourished - HEENT HEENT: Atraumatic, Pharynx benign - Neck Neck: Supple, no meningeal sign, No JVD - Cardiac Cardiac: RRR, No murmur - Respiratory Respiratory: No respiratory distress, Clear bilaterally - Abdomen Abdomen: Normal bowel sounds, Soft, Non distended, Other (ttp llq no guarding) - Back Back: No CVA TTP, No spinal TTP - Derm Derm: Normal color, Warm and dry, No rash - Neuro Neuro: Alert and oriented X 3 Eye Opening: Spontaneous Motor: Obeys Commands Verbal: Oriented GCS Score: 15 - Psych Psych: Normal mood, Normal affect Results - Vitals Vitals: Vital Signs - 24 hr 12/10/20 12/10/20 18:19 20:21 Temperature 36.5 C 36.5 C Heart Rate 107 H 98 Respiratory 18 18 Rate Blood Pressure 179/98 H 169/92 H O2 Saturation 97 98 Oxygen O2 Source Room air - Labs Labs: Laboratory Tests 12/10/20 12/10/20 12/10/20 19:15 19:15 20:42 WBC 9.4 RBC 4.90 Hgb 16.2 H Hct 49.1 H MCV 100.2 H MCH 33.1 H MCHC 33.0 RDW 12.7 Plt Count 256 MPV 9.4 Neut # (Auto) 7.5 H Lymph # (Auto) 1.2 L [place] # (Auto) 0.7 Eos # (Auto) 0.0 Baso # (Auto) 0.0 Absolute Nucleated RBC 0.00 Nucleated RBC % 0.0 Sodium 140 Potassium 4.0 Chloride 101 Carbon Dioxide 26 Anion Gap 13.0 BUN 10 Creatinine 0.8 Estimated GFR (MDRD) 69 L Glucose 148 H Calcium 10.2 Total Bilirubin 0.7 AST 30 ALT 22 Alkaline Phosphatase 95 Total Protein 8.2 Albumin 4.9 Globulin 3.3 Albumin/Globulin Ratio 1.5 Lipase 50 Urine Color YELLOW Urine Clarity CLEAR Urine pH 6.0 Ur Specific [place] 1.020 Urine Protein NEGATIVE Urine Glucose (UA) NEGATIVE Urine Ketones 40 H Urine Occult Blood NEGATIVE Urine Nitrite NEGATIVE Urine Bilirubin NEGATIVE Urine Urobilinogen 0.2 (NORMAL) Ur Leukocyte Esterase NEGATIVE Ur Microscopic Review NOT INDICATED Urine Culture Comments NOT INDICATED PD MEDICAL DECISION MAKING - ED course Complexity details: considered differential, d/w family ED course: Presented with 3 days of constipation and left lower quadrant pain. We obtained labs which are reassuring however patient had persistent left lower quadrant abdominal pain and I did recommend a CT scan to evaluate for possible diverticulitis or bowel obstruction, however patient declined as she was worried about her who is waiting in the car. She only wanted medication for constipation and plans to try that at home and states that she will return if her symptoms worsen. She is of sound mind and has decision-making capacity therefore I discharged her after mag citrate had a bisacodyl suppository and she will return tomorrow if she does not have a bowel movement or is ongoing abdominal pain, fever, nausea or vomiting or other new concerns. Departure - Departure Disposition: 01 Home, Self Care Clinical Impression: Constipation Qualifiers: Constipation type: unspecified constipation type Qualified Code(s): K59.00 - Constipation, unspecified Instructions: ED Constipation Comments: You presented w/ constipation and left lower abdominal pain. As we discussed, your labs are stable but I would have liked to do a CT scan of your abdomen given location of pain to rule out obstruction or diverticulitis. You were not able to wait for the CT scan so we will treat w/ medication for constipation but I strongly urge you to return to the hospital if you have ongoing pain or no improvement in constipation so we can evaluate for other potential, and serious, causes of constipation symptoms.
[2020-12-10 21:26] VITALS: BP 149/92
== END 2020-12-10 21:26 | disposition home or self-care (01) ==
LOC: ED 18:15
DX: K59.00 Constipation, unspecified (principal)
CPT/HCPCS: 36415; 80053; 81003; 83690; 85025; 99282; 99283; A9270; 81001; 87086

== ENCOUNTER 2020-12-11 11:18 | Emergency (ER) | payer MEDICARE, OTHER ==
--- NOTE | 2020-12-11 11:56 | ED Physician Documentation ---
PD HPI ABD PAIN - Stated complaint Stated Complaint: CONSTIPATION - Chief complaint Chief Complaint: Abd Pain - History obtained from History obtained from: Patient - Additional information Additional information: This is a 80-year-old female who was seen yesterday for constipation. She had had 3 to 4 days of constipation along with left lower quadrant pain that started yesterday. No fever chills, no vomiting or nausea, no diarrhea, no urinary symptoms. She had tried Dulcolax as well as a enema at home yesterday and presented to the ER last night at which time I recommended a CT of her abdomen pelvis due to left lower quadrant discomfort on exam. The patient at that time did not want to wait for the CT and stated she only wanted medication for her constipation and she would return if symptoms worsen. She is here today with worsening left lower quadrant pain and no relief in her constipation. Review of Systems Constitutional: reports: Reviewed and negative Eyes: reports: Reviewed and negative Ears: reports: Reviewed and negative Nose: reports: Reviewed and negative Throat: reports: Reviewed and negative Cardiac: reports: Reviewed and negative Respiratory: reports: Reviewed and negative GI: reports: Abdominal Pain, Constipation. denies: Nausea, Vomiting, Diarrhea, Hematemesis, Bloody / black stool : reports: Reviewed and negative Skin: reports: Reviewed and negative Musculoskeletal: reports: Reviewed and negative Neurologic: reports: Reviewed and negative Psychiatric: reports: Reviewed and negative Endocrine: reports: Reviewed and negative Immunocompromised: reports: Reviewed and negative PD PAST MEDICAL HISTORY - Past Medical History Past Medical History: Yes Respiratory: None Endocrine/Autoimmune: None GI: GERD, Chronic constipation, Hemorrhoids : Other HEENT: Chronic hearing loss Psych: Anxiety Musculoskeletal: Osteoarthritis Derm: Eczema - Past Surgical History Past Surgical History: Yes General: EGD Ortho: Knee replacement, Rotator cuff repair, Spine surgery, Other Cardiovascular: Cardiac catheterization - Present Medications Home Medications: Ambulatory Orders Medication Instructions Recorded Confirmed Oxybutynin [Ditropan] 5 mg PO PRN PRN 08/29/16 09/01/16 traZODone [Desyrel] 200 mg PO DAILY 08/29/16 09/01/16 Clindamycin HCl [Clindamycin 300MG 300 mg PO QID 03/30/17 03/30/17 CAP] DULoxetine [Cymbalta] 20 mg PO BID 02/07/18 02/07/18 Zolpidem [Ambien] 5 mg PO DAILY 03/30/17 03/30/17 Bisacodyl Supp [Dulcolax Supp] 10 mg DC DAILY #20 supp 12/11/20 Docusate Sodium 100Mg Capsule 100 mg PO DAILY #20 12/11/20 [Colace 100Mg Capsule] polyethylene glycoL 3350 [Miralax] 17 gm PO DAILY PRN #1 bottle 12/11/20 - Allergies Allergies/Adverse Reactions: Allergies Allergy/AdvReac Type Severity Reaction Status Date / Time iodine Allergy Unknown Verified 12/11/20 11:43 Penicillins Allergy Unknown Verified 12/11/20 11:43 Sulfa (Sulfonamide Allergy Unknown Verified 12/11/20 11:43 Antibiotics) tetracycline Allergy Unknown Verified 12/11/20 11:43 - Social History Does the pt smoke?: No Smoking Status: Never smoker Does the pt drink ETOH?: Yes Does the pt have substance abuse?: No PD ED PE NORMAL - Vitals Vital signs reviewed: Yes - General General: Alert and oriented X 3, No acute distress - HEENT HEENT: Atraumatic, Pharynx benign - Neck Neck: Supple, no meningeal sign, No JVD - Cardiac Cardiac: RRR, No murmur - Respiratory Respiratory: No respiratory distress, Clear bilaterally - Abdomen Abdomen: Soft, Non distended, Other (Tender left lower quadrant and to left upper quadrant, hypoactive bowel tones.). No: Normal bowel sounds, Non tender - Back Back: No CVA TTP, No spinal TTP - Derm Derm: Normal color, Warm and dry, No rash - Extremities Extremities: No deformity, No tenderness to palpate, Normal ROM s pain, No edema, No calf tenderness / cord - Neuro Neuro: Alert and oriented X 3 Eye Opening: Spontaneous Motor: Obeys Commands Verbal: Oriented GCS Score: 15 - Psych Psych: Normal mood, Normal affect Results - Vitals Vitals: Vital Signs - 24 hr 12/11/20 12/11/20 11:36 14:31 Temperature 36.6 C 36.6 C Heart Rate 96 85 Respiratory 18 16 Rate Blood Pressure 141/89 H 129/87 H O2 Saturation 99 99 Oxygen O2 Source Room air - Labs Labs: Laboratory Tests 12/11/20 12/11/20 12/11/20 12:00 12:14 12:14 WBC 8.6 RBC 5.01 Hgb 16.6 H Hct 49.3 H MCV 98.4 MCH 33.1 H MCHC 33.7 RDW 12.9 Plt Count 273 MPV 9.6 Neut # (Auto) 7.2 H Lymph # (Auto) 0.9 L [place] # (Auto) 0.5 Eos # (Auto) 0.0 Baso # (Auto) 0.0 Absolute Nucleated RBC 0.00 Nucleated RBC % 0.0 Sodium 137 Potassium 3.8 Chloride 102 Carbon Dioxide 23 Anion Gap 12.0 BUN 9 Creatinine 0.8 Estimated GFR (MDRD) 69 L Glucose 125 H Calcium 9.7 Total Bilirubin 0.9 AST 30 ALT 24 Alkaline Phosphatase 93 Total Protein 8.2 Albumin 4.8 Globulin 3.4 Albumin/Globulin Ratio 1.4 Lipase 39 Urine Color YELLOW Urine Clarity CLEAR Urine pH 6.0 Ur Specific [place] 1.010 Urine Protein NEGATIVE Urine Glucose (UA) NEGATIVE Urine Ketones TRACE Urine Occult Blood NEGATIVE Urine Nitrite NEGATIVE Urine Bilirubin NEGATIVE Urine Urobilinogen 0.2 (NORMAL) Ur Leukocyte Esterase NEGATIVE Ur Microscopic Review NOT INDICATED Urine Culture Comments NOT INDICATED PD MEDICAL DECISION MAKING - ED course Complexity details: reviewed results, re-evaluated patient, considered differential, d/w patient ED course: 80-year-old female presented with left lower quadrant pain and concerns for constipation, last BM 4 days ago. She was seen yesterday for same. She returned today for CT scan of her abdomen pelvis, CT scan is reassuring, her labs are also reassuring. There is no sign of obstruction, diverticulitis or other acute infection of the abdomen to explain her left lower quadrant pain. May have some degree of constipation but it visits can be managed as outpatient at this time, I reviewed supportive measures including staying well-hydrated, stay active, diet high in fruits and vegetables, and we will send her home on MiraLAX to take daily. Patient may also take docusate or Dulcolax [id number] daily until she has a bowel movement. Patient follow-up with her primary care provider next couple days if symptoms persist, return to the ER if she has increasing abdominal pain, vomiting, fever or other new concerns. Departure - Departure Disposition: 01 Home, Self Care Clinical Impression: Abdominal pain Qualifiers: Abdominal location: left lower quadrant Qualified Code(s): R10.32 - Left lower quadrant pain Constipation Qualifiers: Constipation type: chronic idiopathic constipation Qualified Code(s): K59.04 - Chronic idiopathic constipation Instructions: Abdominal Pain Prescriptions: Docusate Sodium 100Mg Capsule [Colace 100Mg Capsule] 100 mg PO DAILY #20 Bisacodyl Supp [Dulcolax Supp] 10 mg DC DAILY #20 supp polyethylene glycoL 3350 [Miralax] 17 gm PO DAILY PRN #1 bottle PRN Reason: Constipation Comments: You presented again today with left lower quadrant pain and no bowel movement for several days. We obtained labs which were again reassuring, no signs of infection. Your CT scan today was also reassuring, no signs of bowel obstruction or diverticulitis or other acute abdominal process. We will put you on a regular dose of MiraLAX and encourage you to stay well-hydrated. Continue follow-up with your primary care provider for chronic constipation. You may take Tylenol or ibuprofen for your left lower quadrant pain.
[2020-12-11 12:09] LABS: BILIRUBIN,URINE NEGATIVE (NEGATIVE); GLUCOSE, URINE (UA) NEGATIVE (NEGATIVE); KETONES,URINE (UA) TRACE mg/dL (NEGATIVE); LEUKOCYTE ESTERASE, URINE NEGATIVE (NEGATIVE); NITRITE,URINE NEGATIVE (NEGATIVE); OCCULT BLOOD,URINE NEGATIVE (NEGATIVE); PROTEIN,URINE NEGATIVE (NEGATIVE); UROBILINOGEN,URINE 0.2 (NORMAL) E.U./dL (NORMAL)
[2020-12-11 12:16] LABS: CLARITY,URINE CLEAR (CLEAR)
[2020-12-11 12:21] LABS: BASOPHILS % (AUTO) 0.3 %; EOSINOPHILS % (AUTO) 0.1 %; HCT - HEMATOCRIT 49.3 % (37.0-47.0); HGB - HEMOGLOBIN 16.6 g/dL (12.0-16.0); LYMPHOCYTES # (AUTO) 0.9 10^3/uL (1.5-3.5); LYMPHOCYTES % (AUTO) 10.1 %; MEAN CORPUSCULAR HEMOGLOBIN 33.1 pg (27.0-31.0); MEAN CORPUSCULAR HGB CONC 33.7 g/dL (32.0-36.0); MEAN CORPUSCULAR VOLUME 98.4 fL (81.0-99.0); MEAN PLATELET VOLUME 9.6 fL (7.9-10.8); MONOCYTES # (AUTO) 0.5 10^3/uL (0.0-1.0); MONOCYTES % (AUTO) 5.6 %; NEUTROPHILS # (AUTO) 7.2 10^3/uL (1.5-6.6); NEUTROPHILS % (AUTO) 83.4 %; PLT - PLATELET COUNT 273 10^3/uL (130-450); RED BLOOD COUNT 5.01 10^6/uL (4.20-5.40); RED CELL DISTRIBUTION WIDTH 12.9 % (12.0-15.0); WHITE BLOOD COUNT 8.6 x10^3/uL (4.8-10.8)
[2020-12-11] MEDS ORDERED: diphenhydrAMINE INJ 50 MG/ML VIAL IVP STA (12:28)
[2020-12-11] MEDS ORDERED: IOVERSOL 320 100 ML VIAL IVP ONE ×2 (12:49→13:26)
[2020-12-11 12:56] LABS: ALBUMIN 4.8 g/dL (3.2-5.5); ALBUMIN/GLOBULIN RATIO 1.4 (1.0-2.2); BILIRUBIN,TOTAL 0.9 mg/dL (0.2-1.0); CALCIUM 9.7 mg/dL (8.5-10.3); CREATININE 0.8 mg/dL (0.4-1.0); POTASSIUM 3.8 mmol/L (3.5-5.0); TOTAL PROTEIN 8.2 g/dL (6.7-8.2)
--- NOTE | 2020-12-11 14:08 | CT Report ---
PROCEDURE: Abdomen/Pelvis W INDICATIONS: LLQ pain CONTRAST: IV CONTRAST: Optiray 320 ml: 100 PO CONTRAST: *NO PO CONTRAST TECHNIQUE: After the administration of IV contrast, 5 mm thick sections acquired from the diaphragms to the symp hysis. 5 mm thick coronal and sagittal reformats were acquired. For radiation dose reduction, the f ollowing was used: automated exposure control, adjustment of mA and/or kV according to patient size. COMPARISON: Ultrasound of abdomen dated 08/16/[address] of abdomen and pelvis dated 08/29/2016. FINDINGS: Image quality: Excellent. ABDOMEN: Lung bases: Bibasilar dependent atelectasis is seen. Heart size is normal. Solid organs: Liver and spleen are normal in size and enhancement. Gallbladder is within normal martins its Biliary system is non dilated. Pancreas enhances normally. No adrenal nodules. Kidneys demons trate normal size and enhancement, without hydronephrosis. Peritoneum and bowel: Bowel loops demonstrate normal wall thickness and caliber. No free fluid or a ir. No mesenteric fat stranding. Previously described possible distal transverse colon mass is not a ppreciated on this study. Nodes and vessels: No retroperitoneal or mesenteric adenopathy by size criteria. Aorta and inferior vena cava are normal in size. Miscellaneous: Diastases of the rectus muscles are noted containing anterior wall of transverse colon . PELVIS: Genitourinary: Bladder wall thickness is normal. Miscellaneous: No inguinal hernias or adenopathy. Bones: No suspicious bony lesions. No vertebral body compression fractures. Degenerative endplate changes are noted throughout lumbar spine more prominent at L3-4 through L5-S1 levels. IMPRESSION: 1. No acute inflammatory process is seen in abdomen or pelvis. No free fluid of free air. No abnormal bowel wall thickening or mesenteric fat stranding. No bowel obstruction. 2. Bibasilar atelectasis. 3. Diastases of the rectus muscles with small ventral hernia containing anterior wall of transverse c olon. This was also seen on previous abdominal ultrasound. Reviewed by: Felipe Greenberg MD on 12/11/2020 2:06 PM PDT Approved by: Felipe Greenberg MD on 12/11/2020 2:06 PM PDT Station ID: [id number]
[2020-12-11 14:31] VITALS: BP 129/87
== END 2020-12-11 14:50 | disposition home or self-care (01) ==
LOC: ED 11:18
DX: R10.32 Left lower quadrant pain (principal); K59.04 Chronic idiopathic constipation
CPT/HCPCS: 36415; 74177; 80053; 81003; 83690; 85025; 96374; 99282; 99284; J1200; Q9967; 81001; 87086

== ENCOUNTER 2021-10-23 12:23 | Outpatient (CLI) | payer MEDICARE, OTHER ==
--- NOTE | 2021-10-23 14:06 | XRAY Report ---
PROCEDURE: Thoracic Spine 2 View INDICATIONS: LOW BACK PAIN, LEFT HIP PAIN TECHNIQUE: 2 views of the thoracic spine were acquired. COMPARISON: None. FINDINGS: Bones: No fractures or dislocations. There is rightward curvature of the upper thoracic spine. Mild kyphosis of the upper thoracic spine. No vertebral body height loss. Mild disc space narrowing of mu ltiple levels in the upper thoracic spine are consistent with disc disease. No suspicious bony lesion s. 12 pairs of ribs are noted, and appear intact where visualized. Soft tissues: No paravertebral stripe thickening. IMPRESSION: Degenerative changes of the thoracic spine. No acute abnormality. Reviewed by: Lam Bañuelos on 10/23/2021 2:05 PM PDT Approved by: Lam Bañuelos on 10/23/2021 2:05 PM PDT Station ID: [id number]
--- NOTE | 2021-10-23 14:07 | XRAY Report ---
PROCEDURE: Hip w/Pelvis 2-3V LT INDICATIONS: LOW BACK PAIN, LEFT HIP PAIN TECHNIQUE: AP pelvis with lateral view(s) of the left hip(s). COMPARISON: None. FINDINGS: Bones: No fractures or dislocations. Mild degenerative changes of the left hip. Pelvic ring appears intact. No suspicious bony lesions. Soft tissues: The visualized bowel gas pattern is normal. No suspicious soft tissue calcifications. IMPRESSION: Mild degenerative changes, otherwise normal pelvis and left hip. Reviewed by: Lam Bañuelos on 10/23/2021 2:06 PM PDT Approved by: Lam Bañuelos on 10/23/2021 2:06 PM PDT Station ID: [id number]
--- NOTE | 2021-10-23 14:09 | XRAY Report ---
PROCEDURE: Lumbar Spine 2 View INDICATIONS: LOW BACK PAIN, LEFT HIP PAIN TECHNIQUE: 2 views of the lumbar spine were acquired. COMPARISON: None. FINDINGS: Bones: 5 [id number] vertebrae are present. There are multilevel degenerative changes with disc space narrowing consistent with disc disease from L2 through S1. There is facet arthrosis from L2 th rough S1. There is normal bony alignment. No vertebral body compression fractures. No suspicious steph ny lesions. Soft tissues: Overlying bowel gas pattern is normal. No suspicious soft tissue calcifications. IMPRESSION: 1. Degenerative disc disease at L2-3, L3-4, L4-5, and L5-S1. 2. 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 2. No acute abnormality. Reviewed by: Lam Bañuelos on 10/23/2021 2:07 PM PDT Approved by: Lam Bañuelos on 10/23/2021 2:07 PM PDT Station ID: [id number]
== END 2021-10-23 12:24 | disposition home or self-care (01) ==
LOC: DI.S 12:23
PROVIDERS: ATTEND Nurse Practitioner Family
DX: M51.36 Other intervertebral disc degeneration, lumbar region (principal); M51.37 Other intervertebral disc degeneration, lumbosacral region; M47.816 Spondylosis without myelopathy or radiculopathy, lumbar region; M47.817 Spondylosis without myelopathy or radiculopathy, lumbosacral region; M16.12 Unilateral primary osteoarthritis, left hip; M47.814 Spondylosis without myelopathy or radiculopathy, thoracic region

== ENCOUNTER 2021-12-08 15:04 | Outpatient (CLI) | payer MEDICARE, OTHER ==
--- NOTE | 2021-12-08 18:02 | DEXA Report ---
PROCEDURE: Dexa Spine and/or Hip INDICATIONS: OSTEOPENIA TECHNIQUE: Dual energy x-ray absorptiometry (DXA) was performed on a [employer] System. Regions measur ed are the AP Spine, femoral neck, and if needed forearm. COMPARISON: None. FINDINGS: Lumbar Spine: Bone Mineral Density 0.252 g/cm/cm,T score 0.6, normal Left Hip: Bone Mineral Density 0.797 g/cm/cm,T score -1.7, osteopenia Left Femoral Neck: Bone Mineral Density 0.701 g/cm/cm, T score -2.4, osteopenia (T score greater or equal to -1.0: NORMAL) (T score from -1.1 to -2.4: OSTEOPENIA) (T score less than or equal to -2.5 to: OSTEOPOROSIS) Impression: Left hip osteopenia Patients with diagnosis of osteoporosis or osteopenia should have regular bone mineral density assess ment. For those eligible for Medicare, routine testing is allowed once every 2 years. Testing frequ ency can be increased for patients who have rapidly progressing disease or for those who are receivin g medical therapy to restore bone mass. Reviewed by: Nghia Wan MD on 12/08/2021 5:01 PM NINA Approved by: Nghia Wan MD on 12/08/2021 5:01 PM NINA Station ID: [id number]
== END 2021-12-08 15:05 | disposition home or self-care (01) ==
LOC: DI 15:04
PROVIDERS: ATTEND Nurse Practitioner Family
DX: M85.88 Other specified disorders of bone density and structure, other site (principal)

== ENCOUNTER 2022-06-09 07:00 | Outpatient (CLI) | payer MEDICARE, OTHER ==
--- NOTE | 2022-06-09 15:27 | XRAY Report ---
PROCEDURE: Knee 3 View RT INDICATIONS: SPRAIN OF RIGHT KNEE TECHNIQUE: 3 views of the right knee(s) were acquired. COMPARISON: None. FINDINGS: Bones: Postsurgical changes from right knee arthroplasty. Hardware appears intact. Cortical irregula rity present at the medial femoral metaphysis on the frontal view. Soft tissues: No knee joint effusion. No suspicious soft tissue calcifications . IMPRESSION: Cortical irregularity at the medial femoral metaphysis on the frontal view is indeterminate for an ac earle minimally displaced fracture or artifact. Correlation with point tenderness may be helpful. If sy mptoms persist, follow-up radiographs and/or CT may be helpful for further evaluation. Reviewed by: Francisco Javier Julien MD on 06/09/2022 3:26 PM PDT Approved by: Francisco Javier Julien MD on 06/09/2022 3:26 PM PDT Station ID: [id number]
== END 2022-06-09 23:59 | disposition home or self-care (01) ==
LOC: DI.S 07:00
PROVIDERS: ATTEND Emergency Medicine
DX: S83.411A Sprain of medial collateral ligament of right knee, initial encounter (principal)

== ENCOUNTER 2022-07-01 07:00 | Outpatient (CLI) | payer MEDICARE, OTHER ==
--- NOTE | 2022-07-01 14:23 | XRAY Report ---
PROCEDURE: Lumbar Spine 2 View INDICATIONS: LUMBAR RADICULOPATHY TECHNIQUE: 2 views of the lumbar spine were acquired. COMPARISON: X-ray lumbar spine 10/23/2021 FINDINGS: Bones: 5 [id number] vertebrae are present. Multilevel moderate to severe disc space narrowing most significant at L5-S1. Severe foraminal narrowing is noted L5-S1, moderate to severe L4-5, modera te L3-4. There is normal bony alignment. There is a superior endplate deformity at L1 with 79% stenos is. It is new compared to 10/23/2021 No suspicious bony lesions. Soft tissues: Overlying bowel gas pattern is normal. No suspicious soft tissue calcifications. IMPRESSION: Multilevel degenerative changes most severe L5-S1. Superior endplate deformity of indeterminate age, new compared to 10/23/2021. Recommend correlation rec ent history of trauma and/or pain within this region. Reviewed by: Kim Bianchi MD on 07/01/2022 2:22 PM PDT Approved by: Kim Bianchi MD on 07/01/2022 2:22 PM PDT Station ID: [id number]
== END 2022-07-01 23:59 | disposition home or self-care (01) ==
LOC: DI.S 07:00
PROVIDERS: ATTEND Registered Nurse
DX: R32 Unspecified urinary incontinence (principal); M47.27 Other spondylosis with radiculopathy, lumbosacral region; R93.7 Abnormal findings on diagnostic imaging of other parts of musculoskeletal system

== ENCOUNTER 2022-07-01 08:00 | Outpatient (CLI) | payer MEDICARE, OTHER | END 2022-07-01 23:59 | disposition home or self-care (01) | LOC: LAB.S 08:00 | PROVIDERS: ATTEND Registered Nurse | DX: R30.0 Dysuria (principal); R82.90 Unspecified abnormal findings in urine; R32 Unspecified urinary incontinence | CPT/HCPCS: 87086 ==

== ENCOUNTER 2022-07-29 13:50 | Outpatient (CLI) | payer MEDICARE, OTHER ==
--- NOTE | 2022-07-29 19:17 | MRI Report ---
PROCEDURE: LUMBAR SPINE WO INDICATIONS: LUMBAR RADICULOPATHY TECHNIQUE: Noncontrast sagittal T1 spin echo and T2 fast echo, sagittal STIR, axial T1 and T2 fast spin echo thr ough the lumbar spine. In cases with scoliosis, additional coronal T2 fast spin echo may be performe d. COMPARISON: Correlation is made with lumbar spine plain films, 07/01/2022. FINDINGS: Image quality: Motion artifact is noted. Alignment and Curvature: There is normal bony alignment. Bone Marrow: Marrow is of normal overall signal. At the L1 level, there is a fracture seen, with 20% loss of height anteriorly. This fracture demonstrates low T1-weighted signal and increased STIR sign al, which is consistent with a subacute fracture. No posterior displacement of fracture fragments can be seen. No additional fractures are identified. Spinal Cord: Conus medullaris terminates at the L1 level. Visualized cord demonstrates normal signa l and size. Paraspinous Soft Tissues: No paravertebral masses. T12-L1: The disc height is well-preserved. There is loss of disc signal seen. Mild disc bulge is se en. Moderate neural foraminal narrowing can be seen, right worse than left. No significant central ca nal narrowing is seen. L1-L2: Mild loss of disc height and disc signal are seen. At least moderate disc bulge is seen. A superimposed central disc protrusion is seen. Moderate facet hypertrophy is seen. Moderate to severe bilateral neural foraminal narrowing can be seen, with associated compression upon the exiting nerve roots. There is severe central canal narrowing seen, as on series 6 image 15. L2-L3: Moderate loss of disc height and signal are seen. Moderate disc bulge is seen at this leve l, which is eccentric to the left. Moderate facet hypertrophy is seen. Associated hypertrophy of the ligamentum flavum can be seen. At least moderate bilateral neuroforaminal narrowing can be seen, lef t worse than right. Moderate central canal narrowing is seen. L3-L4: At least moderate loss of disc height and disc signal can be seen. Reactive marrow endplate changes are seen, which are hyperintense on T1-weighted and T2-weighted imaging posteriorly, without significant increased STIR signal. These imaging findings are most consistent with fatty metaplasia (Modic type 2 change). Moderate disc bulge is seen, which is eccentric to the left. Moderate facet hypertrophy is seen, left worse than right. There is at least moderate bilateral neuroforaminal narro wing seen. Moderate central canal narrowing is seen. L4-L5: Moderate loss of disc height and signal are seen. Reactive marrow endplate changes are seen , which are hyperintense on T1-weighted and T2-weighted imaging, without significant increased STIR s ignal. These imaging findings are most consistent with fatty metaplasia (Modic type 2 change). [address] moderate disc bulge is seen. A superimposed central disc protrusion is seen. At least moderate fa cet hypertrophy can be seen. Moderate to severe bilateral neuroforaminal narrowing can be seen, right worse than left. Moderate central canal narrowing is seen. L5-S1: Moderate loss of disc height and signal are seen. Moderate disc bulge is seen at this level , which is eccentric to the left. Moderate facet hypertrophy is seen. Moderate to severe bilateral neuroforaminal narrowing can be seen, left worse than right. Compression is seen upon the exiting ner ve roots. At least moderate central canal narrowing can be seen, which is exacerbated by prominent e pidural fat. IMPRESSION: Multiple levels of degenerative change can be seen, including severe central canal narrow ing at L1-L2. Several sites of significant neuroforaminal narrowing can be seen, with associated exiting nerve root compression. L1 compression deformity seen, with a subacute appearance. Reviewed by: Agus Altamirano MD on 07/29/2022 6:16 PM NINA Approved by: Agus Altamirano MD on 07/29/2022 6:16 PM NINA Station ID: [id number]
== END 2022-07-29 13:51 | disposition home or self-care (01) ==
LOC: DI 13:50
PROVIDERS: ATTEND Registered Nurse
DX: M47.26 Other spondylosis with radiculopathy, lumbar region (principal); M51.16 Intervertebral disc disorders with radiculopathy, lumbar region; M48.061 Spinal stenosis, lumbar region without neurogenic claudication; M47.27 Other spondylosis with radiculopathy, lumbosacral region; M51.17 Intervertebral disc disorders with radiculopathy, lumbosacral region; M48.07 Spinal stenosis, lumbosacral region; M48.56XA Collapsed vertebra, not elsewhere classified, lumbar region, initial encounter for fracture

== ENCOUNTER 2023-01-18 12:09 | Outpatient (CLI) | payer MEDICARE, OTHER ==
--- NOTE | 2023-01-19 10:22 | Mammography Report ---
BILATERAL DIGITAL DIAGNOSTIC MAMMOGRAM 3D/2D WITH LATEROMEDIAL: 01/18/2023 CLINICAL: Palpable left breast lump by physician. Focal left breast pain. Due for bilateral exam. Comparison is made to exams dated: 04/11/2020 mammogram, 11/21/2018 mammogram, 10/11/2017 mammogram, 09/29/2016 mammogram, 09/24/2015 mammogram, and 06/26/2013 mammogram - [facility]. There are scattered areas of fibroglandular density in both breasts (category b / 25%-50% glandular t issue). No significant masses, calcifications, or other findings are seen in either breast. IMPRESSION: INCOMPLETE: NEEDS ADDITIONAL IMAGING EVALUATION There is no mammographic abnormality seen in the left breast to correspond with the pain. There is no mammographic abnormality seen in the left breast to correspond with the abnormality palpa wood by the referring provider in the upper outer quadrant. A targeted ultrasound of the left breast is recommended and will be performed immediately following t his exam. Based on the Tyrer Cuzick model (a risk assessment model) the patients lifetime risk is 0.7% and her 10 year risk is 0.0%. According to the ACR, ACS, and NCCN guidelines, an annual breast MRI exam milena g with mammogram is recommended if the patients lifetime risk is 20% or greater. This exam was interpreted at Station ID: [id number]. NOTE: For mammograms, a report in lay terms will be sent to the patient. Approximately 15% of breast malignancies will not be visualized mammographically. In the management of a palpable breast mass, a negative mammogram must not discourage biopsy of a clinically suspicious lesion. Electronically Signed By: Julianna diallo/:01/18/2023 13:12:18 ACR BI-RADS Category 0: Incomplete 3340F PARENCHYMAL PATTERN: (A) - The breast(s) demonstrate(s) scattered fibroglandular densities. BI-RADS CATEGORY: (0) - 0 Ultrasound [id number] Immediate follow-up LATERALITY: (B)
--- NOTE | 2023-01-19 10:22 | Ultrasound Report ---
LIMITED ULTRASOUND OF LEFT BREAST: 01/18/2023 CLINICAL: Palpable left breast lump by physician. Focal left breast pain. Comparison is made to exams dated: 01/18/2023 mammogram, 04/11/2020 ultrasound, 04/11/2020 mammogram, 11/21/2018 mammogram, 10/11/2017 mammogram, and 09/29/2016 mammogram - [facility]. Ultrasound of the left breast upper outer quadrant was performed on the area of interest. Ferro scal e images of the real-time examination were reviewed. IMPRESSION: NEGATIVE There is no sonographic evidence of malignancy. There is no mammographic or sonographic abnormality seen in the left breast to correspond with the pa lpable abnormality or the area of pain, however, clinical followup is recommended. Return to annual mammogram screening schedule is recommended. This exam was interpreted at Station ID: [id number]. Electronically Signed By: Julianna Foley M.D. lk/:01/18/2023 13:34:55 Ultrasound BI-RADS: 1 Negative BI-RADS CATEGORY: (1) - 1 RECOMMENDATION: (ANNUAL) - Recommend routine annual screening mammography. [id number] return to screening LATERALITY: (B)
== END 2023-01-18 12:10 | disposition home or self-care (01) ==
LOC: DI 12:09
PROVIDERS: ATTEND Nurse Practitioner Family
DX: N63.21 Unspecified lump in the left breast, upper outer quadrant (principal); R92.323 Mammographic fibroglandular density, bilateral breasts

== ENCOUNTER 2023-02-09 12:09 | Outpatient (CLI) | payer MEDICARE, OTHER ==
--- NOTE | 2023-02-09 19:55 | XRAY Report ---
PROCEDURE: Cervical Spine 2 View INDICATIONS: NECK PAIN TECHNIQUE: 3 view(s) of the cervical spine were acquired. COMPARISON: None. FINDINGS: Bones: No fractures or dislocations to the T1 level. The lateral masses of C1 appear intact on the odontoid view. No suspicious bony lesions. Severe diffuse cervical spondylitic change with prominen t multilevel facet arthropathy and multilevel disc height loss and uncovertebral joint hypertrophy. Soft tissues: No prevertebral soft tissue swelling. Bilateral carotid calcifications. IMPRESSION: No acute bony abnormality. Severe cervical spondylosis. ASCVD. Reviewed by: Dom England MD on 02/09/2023 7:54 PM PST Approved by: Dom England MD on 02/09/2023 7:54 PM PST Station ID: [id number]
== END 2023-02-09 12:10 | disposition home or self-care (01) ==
LOC: DI.S 12:09
PROVIDERS: ATTEND Nurse Practitioner Family
DX: M47.812 Spondylosis without myelopathy or radiculopathy, cervical region (principal); I25.10 Atherosclerotic heart disease of native coronary artery without angina pectoris

== ENCOUNTER 2023-07-29 07:00 | Outpatient (CLI) | payer MEDICARE, OTHER ==
--- NOTE | 2023-07-29 16:17 | XRAY Report ---
PROCEDURE: Knee 3V RT INDICATIONS: RIGHT KNEE PAIN TECHNIQUE: 3 views of the knee(s) were acquired. COMPARISON: 06/09/2022. FINDINGS: Bones: No fractures or dislocations. Stable appearance of right knee arthroplasty without evidence o f interval complication. No suspicious bony lesions. Soft tissues: Small knee joint effusion. No suspicious soft tissue calcifications or masses. IMPRESSION: No acute bony abnormality. Stable appearance of right knee arthroplasty without evidence of complicat ion. Reviewed by: Johnny Garnett MD on 07/29/2023 4:16 PM PDT Approved by: Johnny Garnett MD on 07/29/2023 4:16 PM PDT Station ID: [id number]
== END 2023-07-29 23:59 | disposition home or self-care (01) ==
LOC: DI.S 07:00
PROVIDERS: ATTEND Internal Medicine
DX: M25.561 Pain in right knee (principal); Z96.651 Presence of right artificial knee joint

== ENCOUNTER 2023-09-30 12:08 | Outpatient (CLI) | payer MEDICARE, OTHER ==
[2023-09-30 15:38] LABS: BASOPHILS % (AUTO) 0.4 %; HCT - HEMATOCRIT 46.2 % (37.0-47.0); HGB - HEMOGLOBIN 15.7 g/dL (12.0-16.0); LYMPHOCYTES # (AUTO) 0.8 10^3/uL (1.5-3.5); MEAN CORPUSCULAR HEMOGLOBIN 34.1 pg (27.0-31.0); MEAN CORPUSCULAR VOLUME 100.2 fL (81.0-99.0); MEAN PLATELET VOLUME 10.2 fL (7.9-10.8); MONOCYTES # (AUTO) 0.5 10^3/uL (0.0-1.0); MONOCYTES % (AUTO) 7.9 %; NEUTROPHILS # (AUTO) 5.4 10^3/uL (1.5-6.6); NEUTROPHILS % (AUTO) 79.3 %; PLT - PLATELET COUNT 240 10^3/uL (130-450); RED BLOOD COUNT 4.61 10^6/uL (4.20-5.40); RED CELL DISTRIBUTION WIDTH 14.4 % (12.0-15.0); WHITE BLOOD COUNT 6.8 x10^3/uL (4.8-10.8)
[2023-09-30 16:36] LABS: % IRON SATURATION 53 % (20-50); ALBUMIN 4.1 g/dL (3.2-5.5); ALBUMIN/GLOBULIN RATIO 1.4 (1.0-2.2); ALKALINE PHOSPHATASE 62 IU/L (42-121); ALT ALANINE AMINOTRANSFERASE 16 IU/L (10-60); AST ASPARTATE AMINOTRANSFERASE 32 IU/L (10-42); BILIRUBIN,TOTAL 0.9 mg/dL (0.2-1.0); BUN - BLOOD UREA NITROGEN 9 mg/dL (6-20); CALCIUM 9.8 mg/dL (8.5-10.3); CARBON DIOXIDE - CO2 23 mmol/L (21-32); CHLORIDE 102 mmol/L (101-111); CREATININE 0.8 mg/dL (0.6-1.3); CRP - C-REACTIVE PROTEIN < 0.5 mg/dL (<0.5); GFR - MDRD 69 (>89); GLUCOSE 132 mg/dL (74-104); IRON 165 ug/dL (50-212); POTASSIUM 4.3 mmol/L (3.5-4.5); SODIUM 135 mmol/L (135-145); TOTAL IRON BINDING CAPACITY 311 ug/dL (250-450); TOTAL PROTEIN 7.1 g/dL (6.4-8.9); TRANSFERRIN 222 mg/dL (203-362); URIC ACID 6.5 mg/dL (2.3-6.6)
[2023-09-30 16:46] LABS: THYROID STIMULATING HORMONE 1.74 uIU/mL (0.34-5.60)
[2023-09-30 16:54] LABS: FERRITIN 143.2 ng/mL (11.0-306.8)
[2023-09-30 19:52] LABS: ESTIMATED AVERAGE GLUCOSE 97 mg/dL (70-100)
== END 2023-09-30 12:09 | disposition home or self-care (01) ==
LOC: LAB.S 12:08
PROVIDERS: ATTEND Internal Medicine
DX: R53.83 Other fatigue (principal); R41.3 Other amnesia; M48.062 Spinal stenosis, lumbar region with neurogenic claudication; K21.9 Gastro-esophageal reflux disease without esophagitis; I10 Essential (primary) hypertension
CPT/HCPCS: 36415; 80053; 82607; 82728; 83036; 83540; 84443; 84466; 84550; 85025; 85651; 86140